=== PATIENT | female | born 1950 | race Caucasian/White ===

== ENCOUNTER 2020-10-19 21:16 | Emergency (ER) | payer OTHER, MEDICAID ==
[~2020-10-19] VITALS: Ht 170.2 cm; Wt 113.4 kg
[2020-10-19 21:31] VITALS: Ht 170.2 cm; Wt 113.4 kg
[2020-10-20 00:16] VITALS: BP 105/71
== END 2020-10-20 00:17 | disposition home or self-care (01) ==
LOC: ED 21:16
DX: S05.11XA Contusion of eyeball and orbital tissues, right eye, initial encounter (principal); S09.8XXA Other specified injuries of head, initial encounter; I10 Essential (primary) hypertension; E11.9 Type 2 diabetes mellitus without complications; W01.0XXA Fall on same level from slipping, tripping and stumbling without subsequent striking against object, initial encounter; Y93.89 Activity, other specified; Y92.89 Other specified places as the place of occurrence of the external cause; Y99.8 Other external cause status